=== PATIENT | male | born 1965 | race Caucasian/White ===

== ENCOUNTER 2024-09-17 13:18 | Outpatient (AMB) | payer OTHER, SELFPAY ==
--- OUTSIDE RECORDS SUMMARY | 2024-09-17 13:20 | XMS_ITS | Clinical Summary ---
Author Organization [facility] Address [facility] [address] [place] [phone] Phone Care Team Providers Care Box Toe Stitcher Name Role Phone Unknown, Unknown MD Primary Care Provider Unavai lable Allergies Active Allergy Reactions Criticality Noted Date Comments Penicillins Hives 01/16/2016 Medications No known medications Active Problems Problem Noted Date Diagnosed Date Pulmonary sarcoidosis 01/09/2015 Overview (04/17/2015): Pulmonary sarcoidosis; pt thinks dx by exclusion, has mass right lower lobe of lung Family History Medical History Relation Comments Diabetes Father Heart disease Father Breast cancer Maternal Grandmother Cataracts Mother Glaucoma Mother Relation Status Comments Father Maternal Grandmother Mother Social History Tobacco Use Types Packs/Day Years Used Date Smoking Tobacco: Never Alcohol Use Standard Drinks/Week Comments Yes 0 (1 standard drink = 0.6 oz pur e alcohol) socially Education Answer Date Recorded Are you interested in more education? Not on fozia e 09/07/2022 Are you concerned about learning? Not on file 09/07/2022 No 09/07/2022 No 09/07/2022 Digital Access Answer Date Recorded No 10/05/2022 No 10/05/2022 No 10/05/2022 Reliable internet access at home? Not on file 10/05/2022 Device with a working camera? Not on file Sex and Gender Information Value Date Recorded Sex Assigned at Not on file Gender Identity Not on file Sexual Orientation Not on file Plan of Treatment Health Maintenance Due Date Last Done Comments Adult Td,Tdap Booster 1963 LIPID PANEL 1963 DEPRESSION SCREENING 1975 HEPATITIS B SCREENING 1981 HEPATITIS C SCREENING 1981 HIV ONE-TIME SCREENING (18-6 5 YEARS) 1981 PNEUMOCOCCAL VACCINES (50+ y ears) (1 of 2 - PCV) 1982 COLOGUARD 02/11/2008 COLONOSCOPY 02/11/2008 COLORECTAL CANCER SCREENING 02/11/2008 FIT TEST 02/11/2008 FOBT 02/11/2008 SIGMOIDOSCOPY 02/11/2008 VIRTUAL COLONOSCOPY 02/11/2008 ZOSTER VACCINES (1 of 2) 2013 RSV VACCINE (1 - Risk 60-74 years 1-dose series) 2023 INFLUENZA VACCINE (#1) 2023 COVID-19 VACCINE (1 - 2023-2 5 season) 2024 SMOKING STATUS SCREENING (On ce After 26 Yrs) Completed 01/16/2016 HEPATITIS A VACCINES Aged Out No long er eligible based on patient's age to complete this topic HEPATITIS B VACCINES Aged Out No long er eligible based on patient's age to complete this topic HIB VACCINES Aged Out No longer eligi ble based on patient's age to complete this topic MENINGOCOCCAL VACCINES (ACWY) Aged Out No longer eligible based on patient's age to complete this topic Medical Devices Not on file Care Teams Box Toe Stitcher Relationship Specialty Start Date End Date Unknown, Unknown, PCP - General 10/18/15 Additional Source Comments The information contained in this document represents components of the legal health record. It is not the complete legal health record.[facility]
--- NOTE | 2024-09-17 13:40 | MHC.OFFWIV ---
Intake Vital Signs 09/17/24 13:41 Height 5 ft 8 in Weight 190 lb BMI 28.9 BP 92/62 Blood Pressure Location Rt brachial Position Sitting Respiration 16 Pulse 63 Pulse Source Pulse Oximeter Temp 98.0 F Temp Source Oral Pulse Oximetry (%) 97 Oxygen Delivery Method Room Air Intake Visit Reasons: EP-?underneath rt side ear pain Intake Note: Pt is here today c/o Rt side of ear pain: pt says ? salivary gland clogged Patient Tobacco Use Status: Never used Tobacco Allergies Penicillins Adverse Reaction (Verified 09/17/24 13:45) hives HPI EP-?underneath rt side ear pain HPI Details patient has had several days of swelling on her right ear. He suspected a swollen parotid gland and had a small amount of azithromycin and also a small amount of doxycycline at home. still has swelling. No other complaints PFSH Social History Patient Tobacco Use Status: Never used Tobacco Review of Systems Const Denies chills, Denies fatigue, Denies fever(s), Denies headache(s) and Denies weakness ENT Details: swelling under right ear Denies dizziness and Denies headache(s) Card Denies dyspnea Resp Denies cough, Denies dyspnea, Denies wheezing and Denies other ( shortness of breath) Musc Denies numbness and Denies tingling Neuro Denies dizziness, Denies headache(s), Denies numbness, Denies tingling, Denies paresthesias and Denies weakness Psych Denies anxiety and Denies depression Endo Denies fatigue Aller/Immun Denies wheezing Physical Exam Vital Signs: Last Vital Signs Temp 98.0 F 09/17/24 13:41 Pulse 63 09/17/24 13:41 Resp 16 09/17/24 13:41 BP 92/62 09/17/24 13:41 Pulse Ox 97 09/17/24 13:41 Oxygen Delivery Method Room Air 09/17/24 13:41 BMI result Body Mass Index 28.9 HEENT Other: swelling at parotid gland. TM is normal. No tooth pain or tenderness. Some swelling at internal cheek near parotid papilla Assessment & Plan Assessment & Plan (1) Acute parotitis: Code(s): K11.21 - Acute sialoadenitis Plan: swelling at parotid gland. TM is normal. No tooth pain or tenderness. Some swelling at internal cheek near parotid papilla azithromycin and also a short course of doxycycline which he had at home he is allergic to penicillin will give him a script for clindamycin warm compresses sour candies or lemon ibuprofen hydrate very well if not improving or worsens follow-up with PCP or return to office Medications: New clindamycin HCl 300 mg PO TID 10 days 30 caps 0RF Coding Level of Care Code Est Pt Level 3 (25425) Diagnoses Acute parotitis K11.21
[2024-09-17 13:41] VITALS: BP 92/62; PULSE 63; RESP 16; TEMP 36.7; O2SAT 97; BMI 28.9
== END 2024-09-17 15:09 | disposition home or self-care (01) ==
PROVIDERS: Visit Provider Family Medicine
DX: K11.21 Acute sialoadenitis (principal)

== ENCOUNTER → 2024-09-17 13:18 | Outpatient (BNVA) | payer OTHER, SELFPAY | PROVIDERS: Visit Provider Family Medicine ==